=== PATIENT | female | born 1975 | race Caucasian/White ===

== ENCOUNTER 2018-05-07 03:16 | Emergency (ER) | payer MEDICAID ==
[~2018-05-07] VITALS: Ht 167.6 cm; Wt 75.3 kg
[2018-05-07 03:19] VITALS: Ht 167.6 cm; Wt 75.3 kg
[2018-05-07 05:42] LABS: UA SPECIFIC GRAVITY >=1.030 (1.005-1.035); microscopic required? YES; urine erythrocyte 1+ (NEGATIVE)
[2018-05-07 06:13] LABS: BASOPHIL % 0.3 % (0-2); PLATELET COUNT 328 x10^3mcL (130-400)
[2018-05-07 06:21] LABS: CARBON DIOXIDE 26.8 mmol/L (21-32); CHLORIDE SERUM 102 mmol/L (98-107); CREATININE SERUM 0.9 mg/dL (0.6-1.0); GFR1 > 60 mL/min; GLUCOSE SERUM 264 mg/dL (74-106); SODIUM SERUM 137 mmol/L (136-145)
[2018-05-07 06:22] LABS: RED CELL DISTRIBUTION WIDTH 17.4 % (11.5-14.5)
[2018-05-07 06:26] LABS: ALBUMIN 3.6 g/dL (3.4-5.0); ALKALINE PHOSPHATASE 95 U/L (46-116); ALT/SGPT 24 U/L (14-59); AST/SGOT 16 U/L (15-37); BILIRUBIN TOTAL 0.1 mg/dL (0.20-1.00); TOTAL PROTEIN, SERUM 7.9 g/dL (6.4-8.2)
[2018-05-07 07:36] VITALS: BP 107/76
== END 2018-05-07 07:36 | disposition home or self-care (01) ==
LOC: ED 03:16
PROVIDERS: Emergency Medicine
DX: J06.9 Acute upper respiratory infection, unspecified (principal); R31.9 Hematuria, unspecified; R10.9 Unspecified abdominal pain; E11.9 Type 2 diabetes mellitus without complications; Z90.89 Acquired absence of other organs; Z90.49 Acquired absence of other specified parts of digestive tract; Z88.8 Allergy status to other drugs, medicaments and biological substances
CPT/HCPCS: 36415; J1885

== ENCOUNTER 2018-05-28 10:09 | Emergency (ER) | payer MEDICAID ==
[2018-05-28 13:16] LABS: BASOPHIL % 0.2 % (0-2); PLATELET COUNT 306 x10^3mcL (130-400)
[2018-05-28 13:17] LABS: RED CELL DISTRIBUTION WIDTH 18.3 % (11.5-14.5)
[2018-05-28 13:27] LABS: CALCIUM 8.8 mg/dL (8.5-10.1); CARBON DIOXIDE 26.7 mmol/L (21-32); CHLORIDE SERUM 100 mmol/L (98-107); CREATININE SERUM 0.8 mg/dL (0.6-1.0); GFR1 > 60 mL/min; GLUCOSE SERUM 327 mg/dL (74-106); POTASSIUM SERUM 4.1 mmol/L (3.5-5.1); SODIUM SERUM 134 mmol/L (136-145)
[2018-05-28 13:32] LABS: ALBUMIN 3.5 g/dL (3.4-5.0); ALKALINE PHOSPHATASE 108 U/L (46-116); ALT/SGPT 17 U/L (14-59); AST/SGOT 10 U/L (15-37); BILIRUBIN TOTAL 0.34 mg/dL (0.20-1.00); TOTAL PROTEIN, SERUM 7.8 g/dL (6.4-8.2)
[2018-05-28 14:40] VITALS: BP 128/94
== END 2018-05-28 14:40 | disposition home or self-care (01) ==
LOC: ED 10:09
PROVIDERS: Emergency Medicine
DX: N39.0 Urinary tract infection, site not specified (principal); K64.4 Residual hemorrhoidal skin tags; E11.65 Type 2 diabetes mellitus with hyperglycemia; Z90.49 Acquired absence of other specified parts of digestive tract; Z90.89 Acquired absence of other organs; Z88.8 Allergy status to other drugs, medicaments and biological substances
CPT/HCPCS: 36415

== ENCOUNTER 2018-07-22 16:59 | Emergency (ER) | payer OTHER ==
[~2018-07-22] VITALS: Ht 167.6 cm; Wt 80.7 kg
[2018-07-22 17:05] VITALS: Ht 167.6 cm; Wt 80.7 kg
[2018-07-22 18:10] LABS: BASOPHIL % 0.3 % (0-2); PLATELET COUNT 263 x10^3mcL (130-400); RED CELL DISTRIBUTION WIDTH 17.1 % (11.5-14.5)
[2018-07-22 18:13] LABS: CALCIUM 8.9 mg/dL (8.5-10.1); CARBON DIOXIDE 29.9 mmol/L (21-32); CHLORIDE SERUM 100 mmol/L (98-107); CREATININE SERUM 0.8 mg/dL (0.6-1.0); GFR1 > 60 mL/min; GLUCOSE SERUM 297 mg/dL (74-106); SODIUM SERUM 136 mmol/L (136-145)
[2018-07-22 18:17] LABS: ALKALINE PHOSPHATASE 110 U/L (46-116); ALT/SGPT 21 U/L (14-59); AST/SGOT 13 U/L (15-37); TOTAL PROTEIN, SERUM 7.3 g/dL (6.4-8.2)
[2018-07-22 18:18] LABS: ALBUMIN 3.3 g/dL (3.4-5.0)
[2018-07-22 20:20] VITALS: BP 111/65
== END 2018-07-22 20:20 | disposition home or self-care (01) ==
LOC: ED 16:59
PROVIDERS: Emergency Medicine
DX: R51 Headache (principal); E11.65 Type 2 diabetes mellitus with hyperglycemia; Z90.49 Acquired absence of other specified parts of digestive tract; Z90.89 Acquired absence of other organs; Z88.8 Allergy status to other drugs, medicaments and biological substances
CPT/HCPCS: J1885; J2270; J2765; J7030

== ENCOUNTER 2018-10-19 18:28 | Emergency (ER) | payer OTHER ==
[~2018-10-19] VITALS: Ht 167.6 cm; Wt 68.0 kg
[2018-10-19 19:14] VITALS: Ht 167.6 cm; Wt 68.0 kg
[2018-10-19 20:44] VITALS: BP 132/88
== END 2018-10-19 20:44 | disposition home or self-care (01) ==
LOC: ED 18:28
DX: F41.9 Anxiety disorder, unspecified (principal); F15.10 Other stimulant abuse, uncomplicated; L03.811 Cellulitis of head [any part, except face]; F17.210 Nicotine dependence, cigarettes, uncomplicated; E11.9 Type 2 diabetes mellitus without complications; Z90.89 Acquired absence of other organs; Z90.49 Acquired absence of other specified parts of digestive tract; Z88.8 Allergy status to other drugs, medicaments and biological substances
CPT/HCPCS: 99406; J1200

== ENCOUNTER 2019-01-23 07:57 | Emergency (ER) | payer OTHER ==
[~2019-01-23] VITALS: Ht 167.6 cm; Wt 74.4 kg
[2019-01-23 08:03] VITALS: Ht 167.6 cm; Wt 74.4 kg
[2019-01-23 08:50] LABS: BASOPHIL % 0.3 % (0-2); PLATELET COUNT 221 x10^3mcL (130-400)
[2019-01-23 08:52] LABS: RED CELL DISTRIBUTION WIDTH 14.6 % (11.5-14.5)
[2019-01-23 08:54] LABS: CARBON DIOXIDE 24.2 mmol/L (21-32); CHLORIDE SERUM 104 mmol/L (98-107); CREATININE SERUM 0.7 mg/dL (0.6-1.0); GFR1 > 60 mL/min; GLUCOSE SERUM 165 mg/dL (74-106); POTASSIUM SERUM 4.2 mmol/L (3.5-5.1); SODIUM SERUM 138 mmol/L (136-145)
[2019-01-23 08:58] LABS: ALBUMIN 3.4 g/dL (3.4-5.0); ALKALINE PHOSPHATASE 83 U/L (46-116); ALT/SGPT 15 U/L (14-59); AST/SGOT 9 U/L (15-37); BILIRUBIN TOTAL 0.28 mg/dL (0.20-1.00); LIPASE 277 IU/L (73-393); TOTAL PROTEIN, SERUM 7.1 g/dL (6.4-8.2)
[2019-01-23 10:55] VITALS: BP 104/76
== END 2019-01-23 10:55 | disposition home or self-care (01) ==
LOC: ED 07:57
PROVIDERS: Emergency Medicine
DX: K29.70 Gastritis, unspecified, without bleeding (principal); E11.9 Type 2 diabetes mellitus without complications; Z90.89 Acquired absence of other organs; Z90.49 Acquired absence of other specified parts of digestive tract; Z88.8 Allergy status to other drugs, medicaments and biological substances
CPT/HCPCS: 36415; Q0162

== ENCOUNTER 2019-10-09 16:33 | Emergency (ER) | payer OTHER ==
[~2019-10-09] VITALS: Ht 167.6 cm; Wt 79.4 kg
[2019-10-09 16:51] VITALS: Ht 167.6 cm; Wt 79.4 kg
[2019-10-09 20:17] VITALS: BP 128/83
== END 2019-10-09 20:17 | disposition home or self-care (01) ==
LOC: ED 16:33
DX: S20.212A Contusion of left front wall of thorax, initial encounter (principal); S30.1XXA Contusion of abdominal wall, initial encounter; F17.210 Nicotine dependence, cigarettes, uncomplicated; E11.9 Type 2 diabetes mellitus without complications; Z90.49 Acquired absence of other specified parts of digestive tract; Z90.89 Acquired absence of other organs; V49.9XXA Car occupant (driver) (passenger) injured in unspecified traffic accident, initial encounter; Y93.I9 Activity, other involving external motion; Y92.413 State road as the place of occurrence of the external cause; Y99.8 Other external cause status
CPT/HCPCS: 99406; J1885

== ENCOUNTER 2019-10-11 06:48 | Emergency (ER) | payer OTHER ==
[~2019-10-11] VITALS: Ht 167.6 cm; Wt 79.4 kg
[2019-10-11 07:03] VITALS: Ht 167.6 cm; Wt 79.4 kg
[2019-10-11 08:04] LABS: BASOPHIL % 0.4 % (0-2); PLATELET COUNT 257 x10^3mcL (130-400); RED CELL DISTRIBUTION WIDTH 14.2 % (11.5-14.5)
[2019-10-11 08:17] LABS: CALCIUM 8.5 mg/dL (8.5-10.1); CARBON DIOXIDE 25.4 mmol/L (21-32); CHLORIDE SERUM 105 mmol/L (98-107); CREATININE SERUM 0.9 mg/dL (0.6-1.0); GFR1 > 60 mL/min; GLUCOSE SERUM 203 mg/dL (74-106); SODIUM SERUM 139 mmol/L (136-145)
[2019-10-11 08:23] LABS: ALKALINE PHOSPHATASE 86 U/L (46-116); ALT/SGPT 77 U/L (14-59); AST/SGOT 112 U/L (15-37); BILIRUBIN TOTAL 0.41 mg/dL (0.20-1.00); TOTAL PROTEIN, SERUM 6.7 g/dL (6.4-8.2)
[2019-10-11 08:24] LABS: ALBUMIN 3.3 g/dL (3.4-5.0)
[2019-10-11 11:26] VITALS: BP 113/76
== END 2019-10-11 11:26 | disposition home or self-care (01) ==
LOC: ED 06:48
PROVIDERS: Student in an Organized Health Care Education/Training Program
DX: M62.838 Other muscle spasm (principal); R10.814 Left lower quadrant abdominal tenderness; E11.9 Type 2 diabetes mellitus without complications; Z90.89 Acquired absence of other organs; Z90.49 Acquired absence of other specified parts of digestive tract; Z88.8 Allergy status to other drugs, medicaments and biological substances; V49.69XA Unspecified car occupant injured in collision with other motor vehicles in traffic accident, initial encounter; Y93.89 Activity, other specified; Y92.488 Other paved roadways as the place of occurrence of the external cause; Y99.8 Other external cause status
CPT/HCPCS: 82962; J2270; J2405; Q9967

== ENCOUNTER 2019-12-29 10:57 | Emergency (ER) | payer OTHER, SELFPAY ==
[~2019-12-29] VITALS: Ht 167.6 cm; Wt 72.6 kg
[2019-12-29 11:05] VITALS: Ht 167.6 cm; Wt 72.6 kg
[2019-12-29 12:26] LABS: microscopic required? NO
[2019-12-29 12:32] LABS: UA SPECIFIC GRAVITY <=1.005 (1.005-1.035); urine erythrocyte NEGATIVE (NEGATIVE)
[2019-12-29 12:53] LABS: BASOPHIL % 0.1 % (0-2); PLATELET COUNT 240 x10^3mcL (130-400); RED CELL DISTRIBUTION WIDTH 14.1 % (11.5-14.5)
[2019-12-29 13:17] LABS: CALCIUM 8.8 mg/dL (8.5-10.1); CARBON DIOXIDE 24.8 mmol/L (21-32); CHLORIDE SERUM 103 mmol/L (98-107); CREATININE SERUM 0.9 mg/dL (0.6-1.0); GFR1 > 60 mL/min; GLUCOSE SERUM 124 mg/dL (74-106); POTASSIUM SERUM 3.8 mmol/L (3.5-5.1); SODIUM SERUM 137 mmol/L (136-145)
[2019-12-29 13:21] LABS: ALBUMIN 3.8 g/dL (3.4-5.0); ALKALINE PHOSPHATASE 78 U/L (46-116); ALT/SGPT 15 U/L (14-59); AST/SGOT 12 U/L (15-37); BILIRUBIN TOTAL 0.29 mg/dL (0.20-1.00); LIPASE 251 IU/L (73-393); TOTAL PROTEIN, SERUM 7.6 g/dL (6.4-8.2)
[2019-12-29 13:23] LABS: AMPHETAMINE QUAL UR NONE DETECTED (See below)
[2019-12-29 14:42] VITALS: BP 106/62
== END 2019-12-29 14:42 | disposition home or self-care (01) ==
LOC: ED 10:57
PROVIDERS: Emergency Medicine
DX: R10.13 Epigastric pain (principal); F12.90 Cannabis use, unspecified, uncomplicated; R19.7 Diarrhea, unspecified; R11.0 Nausea
CPT/HCPCS: Q0162

== ENCOUNTER 2020-03-14 09:12 | Inpatient (IN) | payer OTHER ==
[~2020-03-14] VITALS: Ht 165.1 cm; Wt 78.0 kg
[2020-03-14 09:14] VITALS: Ht 165.1 cm; Wt 78.0 kg
[2020-03-14 10:04] LABS: BASOPHIL % 0.5 % (0-2); PLATELET COUNT 232 x10^3mcL (130-400); RED CELL DISTRIBUTION WIDTH 14.3 % (11.5-14.5)
[2020-03-14 10:19] LABS: CALCIUM 8.8 mg/dL (8.5-10.1); CARBON DIOXIDE 26.5 mmol/L (21-32); CHLORIDE SERUM 104 mmol/L (98-107); CREATININE SERUM 0.8 mg/dL (0.6-1.0); GFR1 > 60 mL/min; GLUCOSE SERUM 134 mg/dL (74-106); POTASSIUM SERUM 4.1 mmol/L (3.5-5.1); SODIUM SERUM 139 mmol/L (136-145)
[2020-03-14 10:24] LABS: ALBUMIN 3.7 g/dL (3.4-5.0); ALKALINE PHOSPHATASE 76 U/L (46-116); ALT/SGPT 15 U/L (14-59); AST/SGOT 11 U/L (15-37); BILIRUBIN TOTAL 0.1 mg/dL (0.20-1.00); TOTAL PROTEIN, SERUM 7.2 g/dL (6.4-8.2)
[2020-03-14] MEDS ORDERED: FORTAMET500 M1 (12:49)
[2020-03-14 13:51] VITALS: BP 125/68
[2020-03-14 13:54] LABS: AMPHETAMINE QUAL UR NONE DETECTED (See below)
[2020-03-14 17:04] VITALS: BP 109/65
[2020-03-14 20:42] VITALS: BP 110/74
[2020-03-15 05:45] VITALS: BP 107/84
[2020-03-15 07:04] LABS: BASOPHIL % 0.4 % (0-2); PLATELET COUNT 235 x10^3mcL (130-400)
[2020-03-15 07:25] LABS: CALCIUM 8.5 mg/dL (8.5-10.1); CARBON DIOXIDE 22.1 mmol/L (21-32); CHLORIDE SERUM 103 mmol/L (98-107); CHOLESTEROL 164 mg/dL (<200); CHOLESTEROL/HDL RATIO 3.2; CREATININE SERUM 0.7 mg/dL (0.6-1.0); GFR1 > 60 mL/min; GLUCOSE SERUM 149 mg/dL (74-106); HDL CHOLESTEROL 51 mg/dL (40-60); POTASSIUM SERUM 3.7 mmol/L (3.5-5.1); SODIUM SERUM 136 mmol/L (136-145)
[2020-03-15 07:29] LABS: TRIGLYCERIDES 205 mg/dL (<150)
[2020-03-15 08:40] VITALS: BP 121/77
[2020-03-15 12:35] VITALS: BP 124/75
[2020-03-15] MEDS ORDERED: NIT0.4 SL (17:15)
[2020-03-15] MEDS ORDERED: ASPIRIN FOR CHI81 M1 PO (17:16)
[2020-03-15] MEDS ORDERED: LIPITOR10 MG PO (17:17)
[2020-03-15 17:22] VITALS: BP 124/75
== END 2020-03-15 18:01 | disposition home or self-care (01) | DRG 203 ==
LOC: ED 09:12 → DU 11:32
PROVIDERS: Emergency Medicine; ADMIT Internal Medicine; ATTEND Internal Medicine
DX: R07.9 Chest pain, unspecified (principal); E11.9 Type 2 diabetes mellitus without complications; Z20.828 Contact with and (suspected) exposure to other viral communicable diseases; M48.00 Spinal stenosis, site unspecified; K44.9 Diaphragmatic hernia without obstruction or gangrene; Z82.49 Family history of ischemic heart disease and other diseases of the circulatory system; Z83.3 Family history of diabetes mellitus; Z88.8 Allergy status to other drugs, medicaments and biological substances; Z90.49 Acquired absence of other specified parts of digestive tract
CPT/HCPCS: 82962; G0378; J3490